=== PATIENT | male | born 1990 | race Native Hawaiian/Other Pacific Islander ===

== ENCOUNTER 2017-11-15 01:16 | Emergency (ER) | payer OTHER ==
[2017-11-15 02:37] LABS: Basophils # (Auto) 0.1 K/mm3 (0.0-0.1); Basophils % (Auto) 0.4 % (0.0-1.8); Eosinophils # (Auto) 0.1 K/mm3 (0.0-0.4); Eosinophils % (Auto) 0.5 % (0.0-4.3); Hematocrit 43.7 % (35.5-45.6); Hemoglobin 14.7 gm/dl (11.8-15.2); Lymphocytes # (Auto) 1.8 K/mm3 (1.2-5.4); Lymphocytes % (Auto) 10.5 % (13.4-35.0); Mean Corpuscular HGB Conc 34 % (32-34); Mean Corpuscular Hemoglobin 31 pg (28-32); Mean Corpuscular Volume 91 fl (84-94); Monocytes # (Auto) 1.2 K/mm3 (0.0-0.8); Monocytes % (Auto) 7.1 % (0.0-7.3); Platelet Count 296 K/mm3 (140-440); Red Cell Distribution Width 13.3 % (13.2-15.2)
--- NOTE | 2017-11-15 02:39 | Emergency Department Report ---
HPI - General Chief Complaint: Psych Time Seen by Provider: 11/15/17 02:25 - HPI HPI: Room 12 The patient is a 26-year-old male presented with a chief complaint of homicidal ideation. Patient was brought in by police after an altercation with his brother and mother. Per police patient complained of homicidal ideation. Patient denies suicidal or homicidal ideations in the ED. When asked about auditory hallucinations the patient states "I cannot say." Patient denies visual hallucinations. The patient also complains of shortness of breath and cough for approximately one year but has never been evaluated. Location: Mental state, see above Duration: [See above] Quality: Homicidal Severity: Severe Modifying factors: [see above] Context: [see above] Mode of transportation: [not driving] ED Past Medical Hx - Past Medical History Hx Psychiatric Treatment: Yes (depression) - Surgical History Hx Appendectomy: Yes - Family History Family history: no significant - Social History Smoking Status: Current Every Day Smoker (3-4 cigarettes daily) Substance Use Type: Alcohol (occasional), Marijuana - Medications Home Medications: Home Medications Medication Instructions Recorded Confirmed Last Taken Type Sulfamethoxazole/Trimethoprim 1 each PO BID #14 tablet 11/15/17 Unknown Rx [Bactrim DS TAB] ED Review of Systems ROS: Stated complaint: MH Other details as noted in HPI Psychiatric: auditory hallucinations (?), homicidal thoughts. denies: visual hallucinations, suicidal thoughts Physical Exam - Physical Exam Vital Signs: Vital Signs 11/15/17 11/15/17 01:28 01:36 Temperature 98.5 F 98.3 F Pulse Rate 142 H Respiratory 22 20 Rate Blood Pressure 151/81 Blood Pressure 156/84 [Left] O2 Sat by Pulse 98 96 Oximetry Physical Exam: GENERAL: The patient is well-developed well-nourished male lying on stretcher sleeping and appeared to be in acute distress. Patient easily awakened HEENT: Normocephalic. Atraumatic. Extraocular motions are intact. Patient has moist mucous membranes. NECK: Supple. No meningitic signs are noted. There is no adenopathy noted. CHEST/LUNGS: Clear to auscultation. There is no respiratory distress noted. HEART/CARDIOVASCULAR: Regular. There is tachycardia. There is no gallop rub or murmur. ABDOMEN: Abdomen is soft, nontender. Patient has normal bowel sounds. There is no abdominal distention. SKIN: There is no rash. There is no edema. There is no diaphoresis. NEURO: The patient is awake, alert, and oriented. The patient is cooperative. The patient has no focal neurologic deficits. The patient has normal speech and gait. MUSCULOSKELETAL: There is no evidence of acute injury. ED Course Vital Signs 11/15/17 11/15/17 01:28 01:36 Temperature 98.5 F 98.3 F Pulse Rate 142 H Respiratory 22 20 Rate Blood Pressure 151/81 Blood Pressure 156/84 [Left] O2 Sat by Pulse 98 96 Oximetry ED Medical Decision Making - Lab Data Result diagrams: 11/15/17 02:00 11/15/17 02:00 Laboratory Tests 11/15/17 11/15/17 11/15/17 02:00 02:00 02:00 WBC RBC Hgb Hct MCV MCH MCHC RDW Plt Count Lymph % (Auto) [place] % (Auto) Eos % (Auto) Baso % (Auto) Lymph # [place] # Eos # Baso # Seg Neutrophils % Seg Neutrophils # D-Dimer Sodium 144 Potassium 3.7 Chloride 104.1 Carbon Dioxide 17 L Anion Gap 27 BUN 15 Creatinine 1.1 Estimated GFR > 60 BUN/Creatinine Ratio 14 Glucose 110 H Calcium 8.7 Total Creatine Kinase 533 H Urine Color Urine Turbidity Urine pH Ur Specific [place] Urine Protein Urine Glucose (UA) Urine Ketones Urine Blood Urine Nitrite Urine Bilirubin Urine Urobilinogen Ur Leukocyte Esterase Urine WBC (Auto) Urine RBC (Auto) U Epithel Cells (Auto) Uric Acid Crystals Salicylates < 0.3 L Urine Opiates Screen Urine Methadone Screen Acetaminophen 15.0 Ur Barbiturates Screen Ur Phencyclidine Scrn Ur Amphetamines Screen U Benzodiazepines Scrn Urine Cocaine Screen U Marijuana (THC) Screen Plasma/Serum Alcohol 11/15/17 11/15/17 11/15/17 02:00 02:00 02:53 WBC 16.7 H RBC 4.80 Hgb 14.7 Hct 43.7 MCV 91 MCH 31 MCHC 34 RDW 13.3 Plt Count 296 Lymph % (Auto) 10.5 L [place] % (Auto) 7.1 Eos % (Auto) 0.5 Baso % (Auto) 0.4 Lymph # 1.8 [place] # 1.2 H Eos # 0.1 Baso # 0.1 Seg Neutrophils % 81.5 H Seg Neutrophils # 13.6 H D-Dimer 182.34 Sodium Potassium Chloride Carbon Dioxide Anion Gap BUN Creatinine Estimated GFR BUN/Creatinine Ratio Glucose Calcium Total Creatine Kinase Urine Color Urine Turbidity Urine pH Ur Specific [place] Urine Protein Urine Glucose (UA) Urine Ketones Urine Blood Urine Nitrite Urine Bilirubin Urine Urobilinogen Ur Leukocyte Esterase Urine WBC (Auto) Urine RBC (Auto) U Epithel Cells (Auto) Uric Acid Crystals Salicylates Urine Opiates Screen Urine Methadone Screen Acetaminophen Ur Barbiturates Screen Ur Phencyclidine Scrn Ur Amphetamines Screen U Benzodiazepines Scrn Urine Cocaine Screen U Marijuana (THC) Screen Plasma/Serum Alcohol 0.08 H 11/15/17 11/15/17 03:26 03:26 WBC RBC Hgb Hct MCV MCH MCHC RDW Plt Count Lymph % (Auto) [place] % (Auto) Eos % (Auto) Baso % (Auto) Lymph # [place] # Eos # Baso # Seg Neutrophils % Seg Neutrophils # D-Dimer Sodium Potassium Chloride Carbon Dioxide Anion Gap BUN Creatinine Estimated GFR BUN/Creatinine Ratio Glucose Calcium Total Creatine Kinase Urine Color Straw Urine Turbidity Clear Urine pH 5.0 Ur Specific [place] 1.018 Urine Protein <15 mg/dl Urine Glucose (UA) Neg Urine Ketones Tr Urine Blood Mod Urine Nitrite Neg Urine Bilirubin Neg Urine Urobilinogen < 2.0 Ur Leukocyte Esterase Neg Urine WBC (Auto) 19.0 H Urine RBC (Auto) 66.0 U Epithel Cells (Auto) < 1.0 Uric Acid Crystals 3+ Salicylates Urine Opiates Screen Presumptive negative Urine Methadone Screen Presumptive negative Acetaminophen Ur Barbiturates Screen Presumptive negative Ur Phencyclidine Scrn Presumptive negative Ur Amphetamines Screen Presumptive negative U Benzodiazepines Scrn Presumptive negative Urine Cocaine Screen Presumptive negative U Marijuana (THC) Screen Presumptive negative Plasma/Serum Alcohol - EKG Data -: EKG Interpreted by Me EKG shows normal: sinus rhythm Rate: tachycardia (106 bpm) - EKG Data When compared to previous EKG there are: previous EKG unavailable Interpretation: other (no ischemic changes seen) - Radiology Data Radiology results: report reviewed (chest x-ray), image reviewed (chest x-ray) interpreted by me: Chest x-ray-no focal infiltrates, no pneumothorax FINAL REPORT EXAM: XR CHEST ROUTINE 2V HISTORY: cough TECHNIQUE: PA and lateral views of the chest were submitted. FINDINGS: The lungs are clear. Pleural fluid is not seen. The heart size is normal. The skeletal structures are well-maintained. IMPRESSION: No active chest disease. Transcribed By: RB Dictated By: DILAN GUO MD Electronically Authenticated By: DILAN GUO MD Signed Date/Time: 11/14/172349 DD/ 49 TD/TT: 11/14/172349 - Differential Diagnosis homicidal ideation, substance abuse, pneumonia, PE Critical care attestation.: If time is entered above; I have spent that time in minutes in the direct care of this critically ill patient, excluding procedure time. ED Disposition Clinical Impression: Homicidal ideation, UTI (urinary tract infection) Disposition: DC/TX-65 PSY HOSP/PSY UNIT Is pt being admited?: No Does the pt Need Aspirin: No Condition: Serious Instructions: Urinary Tract Infection in Men (ED) Additional Instructions: Return to the emergency department immediately should you develop worsening symptoms, fever, inability to tolerate food or liquid or any other concerns. Prescriptions: Sulfamethoxazole/Trimethoprim [Bactrim DS TAB] 1 each PO BID #14 tablet Referrals: PRIMARY CAREMD [Primary Care Provider] - 3-5 Days Time of Disposition: 04:02 (awaiting acceptance)
[2017-11-15 02:42] LABS: BUN/Creatinine Ratio 14; Blood Urea Nitrogen 15 mg/dL (9-20); Calcium 8.7 mg/dL (8.4-10.2); Hemolysis Index 6
[2017-11-15 03:55] LABS: Bilirubin,Urine NEG (Negative); Blood,Urine MOD (Negative); Color,Urine Straw (Yellow); Protein,Urine <15 mg/dL mg/dL (Negative); Urobilinogen,Urine < 2.0 mg/dL (<2.0)
--- NOTE | 2017-11-15 03:55 | XRay Report ---
FINAL REPORT EXAM: XR CHEST ROUTINE 2V HISTORY: cough TECHNIQUE: PA and lateral views of the chest were submitted. FINDINGS: The lungs are clear. Pleural fluid is not seen. The heart size is normal. The skeletal structures are well-maintained. IMPRESSION: No active chest disease.
[2017-11-15 03:57] LABS: Amphetamine Screen,Urine PRESUMPTIVE NEGATIVE; Benzodiazepines Screen,Urine PRESUMPTIVE NEGATIVE; Cannabinoid Screen,Urine PRESUMPTIVE NEGATIVE; Cocaine Screen,Urine PRESUMPTIVE NEGATIVE; Methadone Screen,Urine PRESUMPTIVE NEGATIVE; Opiate Screen,Urine PRESUMPTIVE NEGATIVE
[2017-11-15] MEDS: BACTRIM DS PO SCH (10:52)
--- NOTE | 2017-11-15 12:35 | Consultation ---
History of Present Illness - Reason for Consult Consult date: 11/15/17 Reason for consult: Mental Health Evaluation Requesting physician: CANDACE AYALA - Chief Complaint Chief complaint: "I argued with my family" - History of Present Psychiatric Illness The patient is a 26-year-old male presented with a chief complaint of homicidal ideation. The patient was brought in by police after an altercation with his brother and mother. Today the patient is calm but disorganized during the assessment. He stated that he had not slept for 2 days prior to getting into argument with his family prior to arrival to the hospital. He is adamant that he got into an argument with his family and the police was called. He did state that he took Zyprexa for depression. This patient is a poor historian at this time. Per the record, the patient was seen in the ER in 2016 for similar behavior. Medications and Allergies Allergies Allergy/AdvReac Type Severity Reaction Status Date / Time No Known Allergies Allergy Verified 07/17/16 02:08 Home Medications Medication Instructions Recorded Confirmed Last Taken Type Sulfamethoxazole/Trimethoprim 1 each PO BID #14 tablet 11/15/17 Unknown Rx [Bactrim DS TAB] Active Meds: Active Medications Trimethoprim/Sulfamethoxazole (Bactrim Ds) 1 each PO Q12HR ENRIQUE Last Admin: 11/15/17 10:52 Dose: 1 each Past psychiatric history - Past Medical History Past Medical History: No medical history Past Surgical History: appendectomy - past Psychiatric treatment and history psychiatric treatment history: Stated that he been seen by a psychiatrist for depression. The patient cannot confirm or deny a fam psy hx. - Social History Social history: lives with family Mental Status Exam - Vital signs Last Vital Signs Temp 98 F 11/15/17 03:35 Pulse 102 H 11/15/17 03:35 Resp 20 11/15/17 11:12 BP 143/88 11/15/17 03:35 Pulse Ox 96 11/15/17 01:36 - Exam Narrative exam: MSE: Appearance: calm Behavior: poor eye contact Speech: regular rate and tone Mood: "okay" Affect: congruent to mood Thought Process: circumstantial Thought Content: denies SI/HI's and AVH's, disorganized Motor Activity: ambulatory, fidgety Cognition: A/O x3 Insight: poor Judgment: poor Results Result Diagrams: 11/15/17 02:00 11/15/17 02:00 Abnormal lab results 11/15/17 11/15/17 11/15/17 Range/Units 02:00 02:00 02:00 WBC (4.5-11.0) K/mm3 Lymph % (Auto) (13.4-35.0) % [place] # (0.0-0.8) K/mm3 Seg Neutrophils % (40.0-70.0) % Seg Neutrophils # (1.8-7.7) K/mm3 Carbon Dioxide 17 L (22-30) mmol/L Glucose 110 H (75-100) mg/dL Total Creatine Kinase 533 H (55-170) units/L Urine WBC (Auto) (0.0-6.0) /HPF Salicylates < 0.3 L (2.8-20.0) mg/dL Plasma/Serum Alcohol 0.08 H (0-0.07) % 11/15/17 11/15/17 Range/Units 02:00 03:26 WBC 16.7 H (4.5-11.0) K/mm3 Lymph % (Auto) 10.5 L (13.4-35.0) % [place] # 1.2 H (0.0-0.8) K/mm3 Seg Neutrophils % 81.5 H (40.0-70.0) % Seg Neutrophils # 13.6 H (1.8-7.7) K/mm3 Carbon Dioxide (22-30) mmol/L Glucose (75-100) mg/dL Total Creatine Kinase (55-170) units/L Urine WBC (Auto) 19.0 H (0.0-6.0) /HPF Salicylates (2.8-20.0) mg/dL Plasma/Serum Alcohol (0-0.07) % All other labs normal. Assessment and Plan Assessment and plan: Impression: Unspecified Mood DO with psy features. Today the patient is calm but disorganized during the assessment. DDx: Bipolar DO, R/O MDD Recommendation/Plan: Continue 1013 with placement to inpatient psy services. Start Zyprexa 5 mg Po HS for mood/psychosis. Discussed possible metabolic side effects of Zyprexa with patient.
[2017-11-16] MEDS: BACTRIM DS PO SCH ×3 (00:18→22:05)
--- NOTE | 2017-11-16 15:39 | Progress Note ---
Subjective - Reason for Consult Consult date: 11/16/17 Reason for consult: Psychiatry Follow-up - Chief Complaint Chief complaint: "It's not my fault" The patient is a 26-year-old male presented with a chief complaint of homicidal ideation. The patient was brought in by police after an altercation with his brother and mother. Today the patient is calm, but disorganized during the assessment. He stated that he felt like he is a "greatest person" in the world. He stated this is a problem with family, because they don't believe he is "special." He was asked to elaborate about why he feel important. His answers were not logical. He had to be redirected several times to keep him on topic. He denies SI/HI's and AVH's. 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 Today the patient is calm, but disorganized during the assessment. DDx: Bipolar DO, R/O MDD, R/O Alcohol Induced Mood DO Recommendation/Plan: Continue 1013 with placement to inpatient psy services. Start Zyprexa 5 mg Po HS for mood/psychosis. Discussed possible metabolic side effects of Zyprexa with patient.
[2017-11-16 16:21] LABS: Alanine Aminotransferase 29 units/L (7-56); Lipase 29 units/L (13-60)
[2017-11-17] MEDS: BACTRIM DS PO SCH ×2 (12:30→22:10)
--- NOTE | 2017-11-18 10:20 | Progress Note ---
Subjective - Reason for Consult Consult date: 11/18/17 Reason for consult: Psychiatry Follow-up - Chief Complaint Chief complaint: "It's not my fault" The patient is a 26-year-old male presented with a chief complaint of homicidal ideation. The patient was brought in by police after an altercation with his brother and mother. Today the patient is calm, but disorganized and delusional during the assessment. He stated that demons are out to get him. He is tangent and had to be redirected several times during interview to stay on topic. He denies SI/HI's and AVH's. He denies any side effects of his medication. 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 Today the patient is calm, but disorganized during the assessment. No acute withdrawals noted (etoh). DDx: Bipolar DO, R/O MDD, R/O Alcohol Induced Mood DO Recommendation/Plan: Continue 1013 with placement to inpatient psy services. Modify Zyprexa to 5 mg PO BID for mood/psychosis and start Depakote 500 mg PO BID for mood. Discussed possible metabolic side effects of Zyprexa with patient.
[2017-11-18] MEDS: BACTRIM DS PO SCH ×2 (11:15→22:29)
--- NOTE | 2017-11-18 14:06 | Emergency Department Report ---
HPI - General Chief Complaint: Psych Time Seen by Provider: 11/15/17 02:25 ED Past Medical Hx - Past Medical History Hx Psychiatric Treatment: Yes (depression) - Surgical History Hx Appendectomy: Yes - Social History Smoking Status: Current Every Day Smoker (3-4 cigarettes daily) Substance Use Type: Alcohol (occasional), Marijuana - Medications Home Medications: Home Medications Medication Instructions Recorded Confirmed Last Taken Type Sulfamethoxazole/Trimethoprim 1 each PO BID #14 tablet 11/15/17 Unknown Rx [Bactrim DS TAB] ED Review of Systems ROS: Stated complaint: MH Other details as noted in HPI Psychiatric: auditory hallucinations (?), homicidal thoughts. denies: visual hallucinations, suicidal thoughts Physical Exam - Physical Exam Vital Signs: Vital Signs 11/15/17 11/15/17 11/15/17 01:28 01:36 03:35 Temperature 98.5 F 98.3 F 98 F Pulse Rate 142 H 102 H Respiratory 22 20 Rate Blood Pressure 151/81 Blood Pressure 156/84 143/88 [Left] O2 Sat by Pulse 98 96 Oximetry 11/15/17 11/15/17 11/16/17 11:12 17:47 01:56 Temperature 98.4 F 98.3 F Pulse Rate 80 98 H Respiratory 20 20 18 Rate Blood Pressure Blood Pressure 126/78 118/79 [Left] O2 Sat by Pulse 100 99 Oximetry 11/16/17 11/16/17 11/16/17 08:36 13:08 22:40 Temperature 97.7 F 98.8 F Pulse Rate 74 99 H Respiratory 14 14 18 Rate Blood Pressure Blood Pressure 108/75 120/82 [Left] O2 Sat by Pulse 98 100 98 Oximetry 11/17/17 11/17/17 11/17/17 10:00 14:35 23:28 Temperature 98.3 F 98 F Pulse Rate 66 76 Respiratory 18 18 20 Rate Blood Pressure Blood Pressure 112/65 132/76 [Left] O2 Sat by Pulse 99 98 99 Oximetry 11/18/17 11/18/17 11/18/17 01:20 05:10 12:03 Temperature 98 F 98.6 F Pulse Rate 88 88 85 Respiratory 12 Rate Blood Pressure Blood Pressure 127/84 134/89 113/81 [Left] O2 Sat by Pulse 100 Oximetry ED Course Vital Signs 11/15/17 11/15/17 11/15/17 01:28 01:36 03:35 Temperature 98.5 F 98.3 F 98 F Pulse Rate 142 H 102 H Respiratory 22 20 Rate Blood Pressure 151/81 Blood Pressure 156/84 143/88 [Left] O2 Sat by Pulse 98 96 Oximetry 11/15/17 11/15/17 11/16/17 11:12 17:47 01:56 Temperature 98.4 F 98.3 F Pulse Rate 80 98 H Respiratory 20 20 18 Rate Blood Pressure Blood Pressure 126/78 118/79 [Left] O2 Sat by Pulse 100 99 Oximetry 11/16/17 11/16/17 11/16/17 08:36 13:08 22:40 Temperature 97.7 F 98.8 F Pulse Rate 74 99 H Respiratory 14 14 18 Rate Blood Pressure Blood Pressure 108/75 120/82 [Left] O2 Sat by Pulse 98 100 98 Oximetry 11/17/17 11/17/17 11/17/17 10:00 14:35 23:28 Temperature 98.3 F 98 F Pulse Rate 66 76 Respiratory 18 18 20 Rate Blood Pressure Blood Pressure 112/65 132/76 [Left] O2 Sat by Pulse 99 98 99 Oximetry 11/18/17 11/18/17 11/18/17 01:20 05:10 12:03 Temperature 98 F 98.6 F Pulse Rate 88 88 85 Respiratory 12 Rate Blood Pressure Blood Pressure 127/84 134/89 113/81 [Left] O2 Sat by Pulse 100 Oximetry ED Medical Decision Making - Lab Data Result diagrams: 11/15/17 02:00 11/15/17 02:00 Critical care attestation.: If time is entered above; I have spent that time in minutes in the direct care of this critically ill patient, excluding procedure time. ED Disposition Disposition: DC/TX-65 PSY HOSP/PSY UNIT Condition: Serious Instructions: Urinary Tract Infection in Men (ED) Additional Instructions: Return to the emergency department immediately should you develop worsening symptoms, fever, inability to tolerate food or liquid or any other concerns. Prescriptions: Sulfamethoxazole/Trimethoprim [Bactrim DS TAB] 1 each PO BID #14 tablet Referrals: PRIMARY CARE, [Primary Care Provider] - 3-5 Days
[2017-11-19] MEDS: BACTRIM DS PO SCH ×2 (10:15→22:06)
--- NOTE | 2017-11-19 12:17 | Progress Note ---
Subjective - Reason for Consult Consult date: 11/19/17 Reason for consult: Psychiatry Follow-up - Chief Complaint Chief complaint: "When can I go home" The patient is a 26-year-old male presented with a chief complaint of homicidal ideation. The patient was brought in by police after an altercation with his brother and mother. Today the patient is calm and cooperative during the assessment. The patient is more lucid today than previous interviews. He denies demons are after him as he said yesterday. He stated that he is seen at [facility] for outpatient psy services. He denies SI/HI's and AVH's. He denies any side effects of his medication. 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 Today the patient is calm and cooperative during the assessment. No acute withdrawals noted (etoh). DDx: Bipolar DO, R/O MDD, R/O Alcohol Induced Mood DO Recommendation/Plan: Evaluate 1013 in 24 hours to determine proper dispo. Continue Zyprexa to 5 mg PO BID for mood/psychosis and Depakote 500 mg PO BID for mood. Discussed possible metabolic side effects of Zyprexa with patient.
[2017-11-20] MEDS: BACTRIM DS PO SCH ×2 (10:27→22:05)
[2017-11-21 07:52] VITALS: BP 106/55
--- NOTE | 2017-11-21 09:07 | Progress Note ---
Subjective - Reason for Consult Consult date: 11/21/17 Reason for consult: Psychiatry Follow-up - Chief Complaint Chief complaint: "i feel so much better" The patient is a 26-year-old male presented with a chief complaint of homicidal ideation. The patient was brought in by police after an altercation with his brother and mother. Today the patient is calm and cooperative during the assessment. Per collateral information from his brother Jessica Liu at [phone], he stated that his brother was noncompliant with his medication prior to his admission to [facility]. He stated that if his brother is stable, he could return home. He stated that their family will support the patient. He stated that the patient is seen at [facility] for outpatient psy services. Per the staff, no behavioral disturbance overnight. The patient denies SI/HI's and AVH's. He denies any side effects of his medications. 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 Today the patient is calm and cooperative during the assessment. No acute withdrawals noted (etoh). VA 27.3. DDx: Bipolar DO, R/O MDD, R/O Alcohol Induced Mood DO Recommendation/Plan: Rescind 1013. Continue Zyprexa to 5 mg PO BID for mood/ psychosis and Depakote 500 mg PO BID for mood. Discussed possible metabolic side effects of Zyprexa with patient. Discussed the with the patient the importance in having his VA levels monitored. Also, discussed the importance to abstain from alcohol consumption (etoh). The patient can follow-up at [facility] for outpatient psy services.
[2017-11-21] MEDS: BACTRIM DS PO SCH (10:55)
== END 2017-11-21 21:01 ==
LOC: EEVIPCON 01:16 → ED 01:16
DX: R45.850 Homicidal ideations (principal); N39.0 Urinary tract infection, site not specified; F32.9 Major depressive disorder, single episode, unspecified; F17.210 Nicotine dependence, cigarettes, uncomplicated; F12.10 Cannabis abuse, uncomplicated; Z90.49 Acquired absence of other specified parts of digestive tract; Z79.899 Other long term (current) drug therapy
CPT/HCPCS: 36415; 71046; 80048; 80164; 80307; 81001; 82150; 82550; 83690; 84075; 84450; 84460; 85025; 85379; 93005; 93010; 99285; G0480; 80320